=== PATIENT | female | born 1965 | race Caucasian/White ===

== ENCOUNTER 2016-07-21 15:04 | Emergency (ER) | payer BC ==
[2016-07-21 16:28] VITALS: BP 149/78
--- NOTE | 2016-07-21 17:53 | UC ---
Respiratory Complaint HPI - HPI Summary HPI Summary: 4-6 weeks of worsening cough, ribs, throat and neck hurt from coughing, had fevers 4 weeks ago, otc treatment of mucolytics without much help---coughing so much she is incont of urine and nearly having emesis - History of Current Complaint Chief Complaint: UCRespiratory Stated Complaint: COUGH, AND FLU LIKE SYMPTOMS Time Seen by Provider: 07/21/16 17:47 Hx Obtained From: Patient ?: No Onset/Duration: Gradual Onset, Lasting Weeks - 4, Worse Since - past week Timing: Constant Severity Initially: Moderate Severity Currently: Moderate Character: Cough: Nonproductive Aggravating Factors: Deep Breaths, Recumbent Position Alleviating Factors: Nothing Associated Signs And Symptoms: Positive: Fever - 4 weeks ago, Pleuritic Chest Pain - worse posteriorly, Wheezing - Allergies/Home Medications Allergies/Adverse Reactions: Allergies Allergy/AdvReac Type Severity Reaction Status Date / Time Penicillins [PCN] Allergy Unknown Verified 07/21/16 16:29 Reaction Details Home Medications: Home Medications Pseudoephedrine-Guaifenesin [Mucinex D 60-600 mg] 1 tab PO 07/21/16 [History] PMH/Surg Hx/FS Hx/Imm Hx Previously Healthy: No Endocrine History Of: Denies: Diabetes, Thyroid Disease Cardiovascular History Of: Reports: Cardiac Disorders - murmur Denies: Hypertension Respiratory History Of: Denies: COPD, Asthma GI/ History Of: Denies: Ulcer - Surgical History Surgical History: Yes Surgery Procedure, Year, and Place: appendix, bunionectony, lazy eye, breast implants, deviated septum - Family History Known Family History: Positive: Other - lung cancer, cystic fibrosis - Social History Occupation: Employed Full-time Lives: Alone Alcohol Use: None Substance Use Type: Marijuana Substance Use Comment - Amount & Last Used: holidays Smoking Status (MU): Never Smoked Tobacco Review of Systems Constitutional: Fever - 4 weeks ago Skin: Negative Eyes: Negative ENT: Negative Respiratory: Cough Cardiovascular: Negative Gastrointestinal: Negative Genitourinary: Negative Motor: Negative Neurovascular: Negative Musculoskeletal: Negative Neurological: Negative Psychological: Negative All Other Systems Reviewed And Are Negative: Yes Physical Exam Triage Information Reviewed: Yes Appearance: Ill-Appearing - mild, Pain Distress - mild, Obese Vital Signs: Initial Vital Signs Temp 98.9 F 07/21/16 16:22 Pulse 89 07/21/16 16:22 Resp 18 07/21/16 16:22 BP 149/78 07/21/16 16:22 Pulse Ox 97 07/21/16 16:22 Vital Signs Reviewed: Yes Eye Exam: Normal Eyes: Positive: Conjunctiva Clear ENT Exam: Normal ENT: Positive: Normal ENT inspection, Hearing grossly normal, Pharynx normal, TMs normal, Other:. Negative: Nasal congestion, Nasal drainage, Tonsillar swelling, Tonsillar exudate, Trismus, Muffled/hoarse voice Dental Exam: Normal Neck exam: Normal Neck: Positive: Supple, Nontender, No Lymphadenopathy Respiratory Exam: Normal Respiratory: Positive: Chest non-tender - posterior ribs, No respiratory distress, No accessory muscle use, Wheezing - rlower and right middle lobe Cardiovascular Exam: Normal Cardiovascular: Positive: RRR, No Murmur, Pulses Normal, Brisk Capillary Refill Musculoskeletal Exam: Normal Musculoskeletal: Positive: Strength Intact, ROM Intact, No Edema Neurological Exam: Normal Neurological: Positive: Alert, Muscle Tone Normal, Fatigued Psychological Exam: Normal Skin Exam: Normal UC Diagnostic Evaluation - Laboratory O2 Sat by Pulse Oximetry: 97 - Radiology Xray Interpretation: No Acute Changes Radiology Interpretation Completed By: Radiologist Re-Evaluation - Re-Evaluation First Eval Change: Improved - wheeze resolved---feels better Respiratory Course/Dx - Course Course Of Treatment: prednisone, albuterol, vicoden, rest, increase fluids follow with pcp re-check prn - Differential Dx/Diagnosis Differential Diagnosis/HQI/PQRI: Asthma, Bronchitis, Lower Resp Infection Provider Diagnoses: Post viral Cough Discharge - Discharge Plan Condition: Stable Disposition: HOME Prescriptions: Hydrocodone-Acetaminophen [Hydrocodone/Acetaminophen 5-325 mg] 1 tab PO Q6HR PRN #12 tab MDD 4 PRN Reason: cough/rib pain predniSONE TAB* [Deltasone TAB*] 40 mg PO DAILY #8 tab Patient Education Materials: How to Use a Metered-Dose Inhaler (ED), Acute Cough (ED) Referrals: [facility] [Outside] - If Needed
[2016-07-21] MEDS ORDERED: Albuterol/Ipratropium NEB.SOL* Albuterol 2.5 MG/Ipratropium 0.5 MG 3 ML INH ONE (17:57)
--- NOTE | 2016-07-21 18:49 | RAD ---
INDICATION: Cough COMPARISON: None TECHNIQUE: PA and lateral dual-energy views were obtained. FINDINGS: Bones/Soft Tissues: There are no acute bony findings. Cardiomediastinal: The cardiomediastinal silhouette is normal. Lungs: There are no infiltrates. Pleura: There are no pleural effusions. Other: None IMPRESSION: NORMAL CHEST.
[2016-07-21] MEDS ORDERED: Albuterol HFA INHALER* 8 gm MDI INH ONE (19:09)
[2016-07-21] MEDS ORDERED: HYDROcodone/ACETAMIN 5-325 MG* 1 TAB PO ONE (19:10)
== END 2016-07-21 19:44 | disposition home or self-care (01) ==
LOC: UCEAST 15:04
DX: R05 Cough (principal); B94.8 Sequelae of other specified infectious and parasitic diseases; Z88.0 Allergy status to penicillin; Z80.1 Family history of malignant neoplasm of trachea, bronchus and lung
CPT/HCPCS: 71020; 99203; A9270-GY; G0463